=== PATIENT | male | born 1955 | race African-American/Black ===

== ENCOUNTER 2020-12-20 16:03 | Emergency (ER) | payer SELFPAY ==
[~2020-12-20] VITALS: Ht 177.8 cm; Wt 100.0 kg
[2020-12-20 16:06] VITALS: BP 132/82
[2020-12-20] MEDS ORDERED: SPIR-37 PO (16:15)
[2020-12-20] MEDS ORDERED: ATOR40TA28 PO (16:15)
[2020-12-20] MEDS ORDERED: CARV6 PO (16:15)
[2020-12-20] MEDS ORDERED: FOLI-130 PO (16:15)
[2020-12-20] MEDS ORDERED: RIVA20TA PO (16:15)
[2020-12-20] MEDS ORDERED: FURO20 PO (16:15)
== END 2020-12-20 18:00 | disposition left against medical advice (07) ==
LOC: EMS 16:05
DX: S61.211A Laceration without foreign body of left index finger without damage to nail, initial encounter (principal); Z53.21 Procedure and treatment not carried out due to patient leaving prior to being seen by health care provider; W45.8XXA Other foreign body or object entering through skin, initial encounter; Y93.89 Activity, other specified; Y92.89 Other specified places as the place of occurrence of the external cause; Y99.8 Other external cause status

== ENCOUNTER 2023-06-20 10:45 | Emergency (ER) | payer MEDICARE, OTHER ==
[~2023-06-20] VITALS: Ht 175.3 cm; Wt 95.0 kg
[~2023-06-20 10:45] MED LIST: ATOR40TA28 PO; CARV6 PO; FOLI-130 PO; FURO20 PO; RIVA20TA PO; SPIR-37 PO
[2023-06-20 11:05] VITALS: BP 157/99; PULSE 70; RESP 18; TEMP 98
[2023-06-20] MEDS: DOXYCYCLINE HYCLATE 100 MG TABLET PO ONE (11:55)
[2023-06-20] MEDS ORDERED: ACET-3385 PO (13:42)
[2023-06-20] MEDS ORDERED: DOXY-354 PO (13:42)
== END 2023-06-20 15:34 | disposition home or self-care (01) ==
LOC: EMS 11:39
DX: L03.115 Cellulitis of right lower limb (principal); J44.9 Chronic obstructive pulmonary disease, unspecified; I10 Essential (primary) hypertension; F17.210 Nicotine dependence, cigarettes, uncomplicated; Z98.890 Other specified postprocedural states
CPT/HCPCS: 99284; 73590-TC; 73610-TC; Z7502; Z7610

== ENCOUNTER 2023-10-05 15:02 | Inpatient (IN) | payer MEDICARE, OTHER ==
[~2023-10-05] VITALS: Ht 175.3 cm; Wt 95.7 kg
[~2023-10-05 15:02] MED LIST changes: +ACET-3385 PO; +DOXY-354 PO
[2023-10-05] MEDS ORDERED: AMLO10TA55 PO (15:09)
[2023-10-05] MEDS ORDERED: CARV6.2534 PO (15:09)
[2023-10-05] MEDS ORDERED: SIMV-43 PO (15:09)
[2023-10-05] MEDS ORDERED: CILO100T3 PO (15:09)
[2023-10-05] MEDS ORDERED: FURO20TA4 PO (15:09)
[2023-10-05] MEDS: OxyCODONE HCL/ACETAMINOPHEN 5-325 MG TABLET PO ONE (17:48)
[2023-10-05 17:57] LABS: BASOPHILS % (AUTO) 0.6 % (0.0-2.0); EOSINOPHILS % (AUTO) 2.9 % (1.0-6.0); HEMATOCRIT 45.5 % (41-53); HEMOGLOBIN 15.5 g/dL (13.5-17.5); LYMPHOCYTES # (AUTO) 2.4 K/uL (1.0-4.8); LYMPHOCYTES % (AUTO) 32.4 % (22.0-44.0); MEAN CORPUSCULAR HEMOGLOBIN 34.1 pg (26.0-34.0); MEAN CORPUSCULAR HGB CONC 34.2 G/dL (31.0-37.0); MEAN CORPUSCULAR VOLUME 100 fL (80-100); MONOCYTES # (AUTO) 0.4 K/uL (0.1-1.0); NEUTROPHILS # (AUTO) 4.2 K/uL (1.8-7.7); NEUTROPHILS % (AUTO) 58.1 % (40.0-70.0); PLATELET COUNT (AUTO) 214 K/uL (150-450); RED BLOOD CELL COUNT(AUTO) 4.56 MIL/uL (4.50-5.90); RED CELL DISTRIBUTION WIDTH 15.2 % (11.5-14.5); WHITE BLOOD COUNT (AUTO) 7.3 K/uL (4.5-11.0)
[2023-10-05 18:11] LABS: ANION GAP 14 mmol/L (8-16); CALCIUM, TOTAL 9.3 mg/dL (8.8-10.5); CARBON DIOXIDE 20 mmol/L (22-29); CHLORIDE 108 mmol/L (98-107); CREATININE 1.25 mg/dL (0.60-1.30); GLOMERULAR FILTR. RATE CALC > 60 mL/min (>60); GLUCOSE,RANDOM 68 mg/dL (70-110); POTASSIUM 3.5 mmol/L (3.5-5.1); SODIUM SERUM 142 mmol/L (136-145); UREA NITROGEN, BLOOD 16 mg/dL (7-18)
[2023-10-05 18:17] LABS: ALANINE AMINOTRANSFERASE 23 U/L (12-78); ALBUMIN 3.9 g/dL (3.4-5.0); ALKALINE PHOSPHATASE 93 U/L (46-116); ASPARTATE AMINOTRANSFERASE 37 U/L (15-37); BILIRUBIN,TOTAL 0.7 mg/dL (0.1-1.0); TOTAL PROTEIN, SERUM 7.8 g/dL (6.4-8.2)
[2023-10-05 18:18] LABS: D-DIMER 0.22 mg/L FEU (0.00-0.50); INR 1.5 (0.9-1.1)
[2023-10-05] MEDS ORDERED: MAGNESIUM HYDROXIDE SUSPENSION 30 ML UDCUP PO PRN (20:30)
[2023-10-05] MEDS ORDERED: ACETAMINOPHEN 325 MG TABLET PO PRN (20:30)
[2023-10-05] MEDS ORDERED: ZOLPIDEM TARTRATE 5 MG TABLET PO PRN (20:30)
[2023-10-05] MEDS ORDERED: ONDANSETRON HCL 4 MG/2 ML VIAL IVP PRN (20:30)
[2023-10-05] MEDS ORDERED: HEPARIN SODIUM,PORCINE 5,000 UNITS/ML VIAL IVP PRN ×2 (20:30)
[2023-10-05 21:04] LABS: BASOPHILS % (AUTO) 0.9 % (0.0-2.0); EOSINOPHILS % (AUTO) 2.9 % (1.0-6.0); HEMOGLOBIN 14.6 g/dL (13.5-17.5); LYMPHOCYTES # (AUTO) 2.4 K/uL (1.0-4.8); LYMPHOCYTES % (AUTO) 31.5 % (22.0-44.0); MEAN CORPUSCULAR HGB CONC 34.1 G/dL (31.0-37.0); MEAN CORPUSCULAR VOLUME 100 fL (80-100); MONOCYTES # (AUTO) 0.5 K/uL (0.1-1.0); MONOCYTES % (AUTO) 6.9 % (2.0-9.0); NEUTROPHILS # (AUTO) 4.5 K/uL (1.8-7.7); NEUTROPHILS % (AUTO) 57.8 % (40.0-70.0); PLATELET COUNT (AUTO) 216 K/uL (150-450); RED CELL DISTRIBUTION WIDTH 15.3 % (11.5-14.5); WHITE BLOOD COUNT (AUTO) 7.8 K/uL (4.5-11.0)
[2023-10-05 21:17] LABS: INR 1.4 (0.9-1.1); PROTHROMBIN TIME 14.4 SEC (9.4-11.6)
[2023-10-05] MEDS: DOCUSATE SODIUM 100 MG CAPSULE PO SCH (21:52)
[2023-10-05] MEDS: CARVEDILOL 6.25 MG TABLET PO SCH (21:52)
[2023-10-06 05:08] LABS: BASOPHILS % (AUTO) 0.9 % (0.0-2.0); EOSINOPHILS % (AUTO) 1.5 % (1.0-6.0); HEMATOCRIT 40.8 % (41-53); HEMOGLOBIN 14.1 g/dL (13.5-17.5); LYMPHOCYTES # (AUTO) 1.4 K/uL (1.0-4.8); LYMPHOCYTES % (AUTO) 18.1 % (22.0-44.0); MEAN CORPUSCULAR HEMOGLOBIN 34.2 pg (26.0-34.0); MEAN CORPUSCULAR HGB CONC 34.5 G/dL (31.0-37.0); MEAN CORPUSCULAR VOLUME 99 fL (80-100); MONOCYTES # (AUTO) 0.4 K/uL (0.1-1.0); MONOCYTES % (AUTO) 5.2 % (2.0-9.0); NEUTROPHILS # (AUTO) 5.6 K/uL (1.8-7.7); NEUTROPHILS % (AUTO) 74.3 % (40.0-70.0); PLATELET COUNT (AUTO) 208 K/uL (150-450); RED BLOOD CELL COUNT(AUTO) 4.11 MIL/uL (4.50-5.90); WHITE BLOOD COUNT (AUTO) 7.5 K/uL (4.5-11.0)
[2023-10-06 09:55] VITALS: BP 124/111; PULSE 66; RESP 20; TEMP 98.3
[2023-10-06] MEDS: SPIRONOLACTONE 25 MG TABLET PO SCH (11:10)
[2023-10-06] MEDS: ASPIRIN 81 MG CHEWABLE TABLET PO SCH (11:11)
[2023-10-06] MEDS: AmLODIPine BESYLATE 10 MG TABLET PO SCH (11:12)
[2023-10-06] MEDS: PANTOPRAZOLE SODIUM 40 MG DR TABLET PO SCH (11:13)
[2023-10-06] MEDS: FUROSEMIDE 20 MG TABLET PO SCH (11:13)
[2023-10-06] MEDS: HEPARIN SODIUM 25000 UNITS/D5W 250 ML IV PRN (11:31)
[2023-10-06] MEDS: MORPHINE SULFATE 2 MG/ML SYRINGE IVP PRN (11:50)
[2023-10-06] MEDS ORDERED: SODIUM CHLORIDE 0.9% 100 ML ONE (13:46)
[2023-10-06] MEDS ORDERED: IOHEXOL 350 MG/ML 100 ML VIAL ONE (13:46)
[2023-10-06 14:31] VITALS: BP 143/88; PULSE 68; RESP 18; TEMP 97.8
[2023-10-06 15:39] VITALS: BP 147/100; PULSE 68; RESP 20; TEMP 97.9
[2023-10-06] MEDS: SODIUM CHLORIDE 0.9% 1,000 ML IV SCH (19:06)
[2023-10-06 19:43] VITALS: BP 138/80; PULSE 73; RESP 19; TEMP 98
[2023-10-06] MEDS ORDERED: SIMVASTATIN 20 MG TABLET PO SCH (21:00)
[2023-10-07 00:05] VITALS: BP 135/79; PULSE 71; RESP 18; TEMP 98.1
[2023-10-07 05:12] VITALS: BP 164/92; PULSE 68; RESP 18; TEMP 98
[2023-10-07] MEDS: HYDROCODONE/ACETAMINOPHEN 5-325 MG TABLET PO PRN (05:55)
[2023-10-07 06:34] LABS: ANION GAP 12 mmol/L (8-16); CALCIUM, TOTAL 9.4 mg/dL (8.8-10.5); CARBON DIOXIDE 24 mmol/L (22-29); CHLORIDE 106 mmol/L (98-107); CREATININE 1.03 mg/dL (0.60-1.30); GLOMERULAR FILTR. RATE CALC > 60 mL/min (>60); GLUCOSE,RANDOM 96 mg/dL (70-110); POTASSIUM 3.5 mmol/L (3.5-5.1); SODIUM SERUM 142 mmol/L (136-145); UREA NITROGEN, BLOOD 11 mg/dL (7-18)
[2023-10-07 06:40] LABS: ALANINE AMINOTRANSFERASE 21 U/L (12-78); ALBUMIN 3.4 g/dL (3.4-5.0); ALKALINE PHOSPHATASE 84 U/L (46-116); ASPARTATE AMINOTRANSFERASE 35 U/L (15-37); BILIRUBIN,TOTAL 0.7 mg/dL (0.1-1.0); TOTAL PROTEIN, SERUM 7.1 g/dL (6.4-8.2)
[2023-10-07 07:42] VITALS: BP 133/85; PULSE 64; RESP 18; TEMP 98
[2023-10-07] MEDS: ATORVASTATIN CALCIUM 40 MG TABLET PO SCH (08:39)
[2023-10-07] MEDS ORDERED: IOHEXOL 350 MG/ML 100 ML VIAL ONE (09:31)
[2023-10-07] MEDS ORDERED: SODIUM CHLORIDE 0.9% 100 ML ONE (09:31)
[2023-10-07 16:03] VITALS: BP 132/91; PULSE 67; RESP 17; TEMP 97.9
[2023-10-07] MEDS: BISACODYL 10 MG RECTAL RECTAL SUPPOSITORY PR PRN (17:35)
[2023-10-07 20:11] VITALS: BP 156/78; PULSE 68; RESP 18; TEMP 98.1
[2023-10-08] VITALS: BP 157/79; PULSE 64; RESP 18; TEMP 97.5
[2023-10-08 04:00] VITALS: BP 138/74; PULSE 56; RESP 16; TEMP 97.7
[2023-10-08 08:14] LABS: ANION GAP 11 mmol/L (8-16); CARBON DIOXIDE 22 mmol/L (22-29); CHLORIDE 107 mmol/L (98-107); POTASSIUM 3.5 mmol/L (3.5-5.1); SODIUM SERUM 140 mmol/L (136-145)
[2023-10-08 09:02] LABS: CREATININE 0.93 mg/dL (0.60-1.30); GLOMERULAR FILTR. RATE CALC > 60 mL/min (>60); GLUCOSE,RANDOM 95 mg/dL (70-110); UREA NITROGEN, BLOOD 7 mg/dL (7-18)
[2023-10-08 09:04] VITALS: BP 141/97; PULSE 75; RESP 18; TEMP 98.3
[2023-10-08 12:45] VITALS: BP 137/78; PULSE 53; RESP 18; TEMP 97.9
[2023-10-08 15:50] VITALS: BP 144/89; PULSE 59; RESP 18; TEMP 97.8
[2023-10-10 03:07] LABS: HEPATITIS C AB (EIA) Non Reactive (Non Reactive)
== END 2023-10-08 19:10 | disposition short-term general hospital (02) | DRG 315 ==
LOC: EMS 15:02 → EDH 10-06 01:50 → 5S 10-06 10:28
PROVIDERS: ADMIT Internal Medicine; ATTEND Internal Medicine
DX: T82.856A Stenosis of peripheral vascular stent, initial encounter (principal); I42.8 Other cardiomyopathies; I74.3 Embolism and thrombosis of arteries of the lower extremities; I48.20 Chronic atrial fibrillation, unspecified; I72.4 Aneurysm of artery of lower extremity; Y83.8 Other surgical procedures as the cause of abnormal reaction of the patient, or of later complication, without mention of misadventure at the time of the procedure; I73.9 Peripheral vascular disease, unspecified; I10 Essential (primary) hypertension; F17.210 Nicotine dependence, cigarettes, uncomplicated; I48.0 Paroxysmal atrial fibrillation; Y83.1 Surgical operation with implant of artificial internal device as the cause of abnormal reaction of the patient, or of later complication, without mention of misadventure at the time of the procedure; E78.5 Hyperlipidemia, unspecified; J44.9 Chronic obstructive pulmonary disease, unspecified; I99.8 Other disorder of circulatory system; Y92.89 Other specified places as the place of occurrence of the external cause; Z79.01 Long term (current) use of anticoagulants; Z79.899 Other long term (current) drug therapy
CPT/HCPCS: 73706; 74174; 74175; 80048; 80053; 85025; 85379; 85610; 85730; 86803; 87081; 87340; 93005; 93306; 93925; 93970; 93971; 99285; G0378; J1644; J2270; J7030; J7050; Q9967

== ENCOUNTER 2024-04-07 13:57 | Emergency (ER) | payer MEDICARE, OTHER ==
[~2024-04-07] VITALS: Ht 175.3 cm; Wt 92.7 kg
[~2024-04-07 13:57] MED LIST changes: -ACET-3385 PO; +AMLO10TA55 PO; -ATOR40TA28 PO; -CARV6 PO; +CARV6.2534 PO; +CILO100T3 PO; -DOXY-354 PO; -FURO20 PO; +FURO20TA4 PO; +SIMV-43 PO
[2024-04-07 14:01] VITALS: TEMP 97.9
[2024-04-07 17:45] VITALS: BP 140/77; PULSE 82; RESP 18; O2SAT 100
== END 2024-04-07 18:34 | disposition home or self-care (01) ==
LOC: EMS 13:57
DX: M79.605 Pain in left leg (principal); J44.9 Chronic obstructive pulmonary disease, unspecified; I10 Essential (primary) hypertension; I48.91 Unspecified atrial fibrillation; F17.210 Nicotine dependence, cigarettes, uncomplicated; Z98.890 Other specified postprocedural states; Z79.02 Long term (current) use of antithrombotics/antiplatelets; Z79.01 Long term (current) use of anticoagulants
CPT/HCPCS: 93926; 93971; 99284; Z7502